=== PATIENT | female | born 1950 | race Caucasian/White ===

== ENCOUNTER → 2018-04-07 | Outpatient (CLI) | payer MEDICARE | END | disposition home or self-care (01) | LOC: LAB SHORT 09:59 → PLD 09:59 | DX: D48.5 Neoplasm of uncertain behavior of skin (principal) | CPT/HCPCS: 88305 ==

== ENCOUNTER 2024-08-10 20:53 | Emergency (ER) | payer MEDICARE ==
[~2024-08-10] VITALS: Ht 124.5 cm; Wt 49.9 kg
[2024-08-10 21:06] VITALS: BP 133/75
[2024-08-10] MEDS ORDERED: Diphth,Pertuss(Acell),Tet Vac 0.5 ML VIAL IM ONE (23:15)
== END 2024-08-10 23:27 | disposition home or self-care (01) ==
LOC: ER 20:53
DX: S01.01XA Laceration without foreign body of scalp, initial encounter (principal); S61.012A Laceration without foreign body of left thumb without damage to nail, initial encounter; Z88.2 Allergy status to sulfonamides; W17.89XA Other fall from one level to another, initial encounter; W26.8XXA Contact with other sharp object(s), not elsewhere classified, initial encounter; Y93.E9 Activity, other interior property and clothing maintenance
CPT/HCPCS: 12002; 70450; 90471; 90715; 99283-25

== ENCOUNTER 2024-08-17 12:27 | Day surgery (SDC) | payer MEDICARE ==
[~2024-08-17] VITALS: Ht 149.9 cm; Wt 44.9 kg
[~2024-08-17 12:27] MED LIST: Atropine Sulfate 0.1 MG/ML 10ML SYR ONE; Glycopyrrolate 0.2 MG/ML 1MLVIAL ONE; Lactated Ringer's 1,000 ML IV ONE; Lidocaine 2% 5 ML SDV ONE; Lidocaine HCl/Pf 1% 5 ML VIAL ONE; Methylene Blue 1% 100 MG/10 ML VIAL ONE; Ondansetron HCl 2 MG / ML 2ML Vial ONE; ePHEDrine Sulfate 50 MG/ML 1ML Injection ONE; propofoL 50 ML IV ONE
[2024-08-17] MEDS ORDERED: GEMFIBROZIL600 MG (12:38)
[2024-08-17] MEDS ORDERED: [UNRECOGNIZED DRUG - OTHER] (12:39)
[2024-08-17] MEDS ORDERED: ZOLOFT25 MG (12:42)
[2024-08-17] MEDS ORDERED: TRAZODONE HYDROCHLOR (12:59)
[2024-08-17] MEDS ORDERED: ROSUVASTATIN CA10 MG (13:00)
[2024-08-17] MEDS ORDERED: METOPROLOL SUCC25 MG (13:00)
[2024-08-17] MEDS ORDERED: B-12500 MC2 (13:01)
[2024-08-17] MEDS ORDERED: C COMPLEX1000 M1 (13:02)
[2024-08-17] MEDS ORDERED: Lactated Ringer's 1,000 ML IV ONE (13:33)
[2024-08-17 15:28] VITALS: BP 113/76
--- NOTE | 2024-08-17 15:29 | NUR ---
08/17/24 1529 GAVIN SMITH PT WAS IN ROOM WITH PT FOR DC INSTRUCTIONS. PT VERY PLEASANT IS . NO ISSUES NOTED.
== END 2024-08-17 15:15 | disposition home or self-care (01) ==
LOC: ORSCSDS 12:27
PROVIDERS: Internal Medicine Gastroenterology
PROC: 0DB68ZX Excision of Stomach, Via Natural or Artificial Opening Endoscopic, Diagnostic (ICD-10-PCS; principal; 2024-08-17 15:00)
PROC: 0DJD8ZZ Inspection of Lower Intestinal Tract, Via Natural or Artificial Opening Endoscopic (ICD-10-PCS; principal; 2024-08-17 15:00)
DX: D50.9 Iron deficiency anemia, unspecified (principal); K44.9 Diaphragmatic hernia without obstruction or gangrene; K92.2 Gastrointestinal hemorrhage, unspecified; G35 Multiple sclerosis; F17.210 Nicotine dependence, cigarettes, uncomplicated; Z79.899 Other long term (current) drug therapy
CPT/HCPCS: 88305; 88342; J0461; J2003; J2405; J2704; J7120; Q9968